=== PATIENT | male | born 1960 | race Caucasian/White ===

== ENCOUNTER 2024-01-12 13:46 | Inpatient (IN) | payer MEDICARE, BC, SELFPAY ==
[2024-01-12] VITALS (15 sets, daily range): BP systolic 122–200; BP diastolic 61–91; PULSE 73–90; RESP 14–27; TEMP 36.7–38.7; O2SAT 94–97
[2024-01-12 14:24] LABS: Lactate 1.7 mmol/L (0.6-1.4)
[2024-01-12] MEDS: Lidocaine 2% Jelly 11 ML SYR (14:25)
[2024-01-12 14:26] LABS: Abs Immature Grans 0.22 10^3/uL (0.0-0.06); Absolute Lymphocyte Count 0.57 10^3/uL (1.2-3.4); Absolute Monocyte Count 1.19 10^3/uL (0.1-0.8); Basophils % 0.2 %; HCT 42.8 % (40.0-50.0); Lymphocytes % 2.5 %; MCH 32.6 pg (27.0-33.0); MCV 93 fL (80-95); MPV 8.6 fL (8.0-11.0); Monocytes % 5.2 %; Neutrophils % 91.1 %; Platelet Count 236 10^3/uL (130-400); RDW 11.5 % (11.8-14.1); RDW-SD 39.3 fL; WBC 22.85 10^3/uL (4.4-10.8)
[2024-01-12 14:28] LABS: Absolute Basophil Count 0.05 10^3/uL (0.0-0.2); Absolute Neutrophil Count 20.82 10^3/uL (1.2-6.7)
[2024-01-12 14:34] LABS: Diff Comment Diff Reviewed; RBC Morphology Normal
[2024-01-12] MEDS: cefTRIAXone 2 GM/50 ML BAG IVPB (14:43)
[2024-01-12 14:45] LABS: ALT 35 U/L (16-63); AST 18 U/L (15-37); Alkaline Phosphatase 75 U/L (46-116); Anion Gap 9.8 mmol/L (3-11); BUN 13 mg/dL (7-18); Bilirubin, Total 2.59 mg/dL (0.2-1.0); CO2 26.2 mmol/L (21.0-32.0); CREATININE 1.1 mg/dL (0.70-1.30); Calcium 9.1 mg/dL (8.5-10.1); Chloride 101 mmol/L (98-107); Glucose 159 mg/dL (74-106); Potassium 4.1 mmol/L (3.5-5.1); Sodium 137 mmol/L (136-145); Total Protein 7.1 g/dL (6.4-8.2)
[2024-01-12 14:57] LABS: Bilirubin Negative (Negative); Blood Moderate (Negative); Clarity Sl Cloudy (Clear); Glucose Negative (Negative); Ketones Negative (Negative); Leukocyte Esterase Moderate (Negative); Nitrite Positive (Negative); Specific Gravity >= 1.030 (1.005-1.025); Urobilinogen 0.2 mg/dL (Up to 0.2); pH 5.5 (5-8)
[2024-01-12 15:01] LABS: Procalcitonin 0.7 ng/mL
[2024-01-12 15:04] LABS: Bacteria Moderate HPF (Negative); C & S Indicated? C&S Done As Ordered; Casts 0-2 Hyaline LPF (Negative); Crystals Negative HPF (Negative); Epithelial Cells Rare HPF (Negative); Mucus Negative (Negative); WBC >50 HPF (0-5)
[2024-01-12] MEDS: Lactated Ringers 1,000 ML 1000 ML IV (15:20)
--- NOTE | 2024-01-12 15:34 | ED.GENADUL_ITS ---
Discharge Plan Disposition Patient Disposition: Admit to [facility] Condition: Improving Discharge Details Chief Complaint: Urinary Clinical Impression: Sepsis, Urinary tract infection Primary Care Provider: Unknown,Unknown ED Provider: Mihir Menon Home Meds and New Rx's Prescriptions: No Action irbesartan [Avapro] 300 mg tablet 300 mg PO DAILY [facility] General Date/Time Provider Initiated Documentation: 01/12/24 13:51 . HPI Narrative: This is a pleasant 63-year-old male with a past medical history of h ypospadia, hypertension, previous hip replacement, who presents today for evaluation of fever chills urinary discomfort. He states that he has not urinated anything for the last 12 hours. He has had an obstruction once in the past which required Estevez catheter. He admits to burning with urination, fever at home. He is currently out camping with his here in [place] and resides in [place] at [facility]. He denies any pain in his hips or abdomen. He denies any vomiting or diarrhea. No runny nose or cough. No other complaints at this time. He has never had surgery for his hypospadia in the past. He does have an undescended right testicle. Related Data Home Medications ?Medication ?Instructions ?Recorded ?Confirmed irbesartan 300 mg tablet (Avapro) 300 mg PO DAILY 01/12/24 01/12/24 Allergies Allergy/AdvReac Type Severity Reaction Status Date / Time No Known Allergies Allergy Unverified 01/12/24 13:54 General Stated Complaint: Urinary ERIKA: 2 Review of Systems All systems reviewed & are unremarkable except as noted in HPI and below Exam Narrative Exam Narrative: 1.Const: Well-nourished, Well-developed, appearing stated age 2.Eyes: PERRL, no conjunctival injection, and symmetrical lids. 3.ENT: Atraumatic external nose and ears. Moist MM. Neck: Symmetric, trachea midline, No thyromegaly. 4.CVS: +S1/S2, No murmurs or gallops. Peripheral pulses 2+ and equal in all extremities. Brisk capillary refill in all extremities. 5.RESP: Unlabored respiratory effort. Clear to auscultation bilaterally. No wheezes rales or rhonchi 6.GI: Soft, Nontender/Nondistended, No hepatosplenomegaly. No guarding or rebound. Genital exam demonstrates hypospadia, no penile tenderness. No suprapubic tenderness. Left testicle is descended normally, right testicle is palpable near the groin area. No hip pain or tenderness with movement. 7.MSK: Normocephalic/Atraumatic, Extremities w/o deformity or ttp No cyanosis or clubbing, Normal movement of all extremities 8.Skin: Warm, Dry. No rashes or lesions. 9.Neuro: handkerchief sample clerk II-XII grossly intact. Sensation grossly intact, no focal neurologic deficits. 10.Psych: (AAO) x3. Appropriate mood and affect Course Vital Signs Vital signs: Vital Signs Temperature 37.7 C H 01/12/24 13:52 Pulse 90 01/12/24 13:52 Respiratory Rate 14 01/12/24 13:52 Blood Pressure 200/91 H 01/12/24 13:52 Pulse Oximetry 95 01/12/24 13:52 Temperature 37.7 C H 01/12/24 14:46 Temperature Source Oral 01/12/24 14:46 Pulse 90 01/12/24 14:46 Respiratory Rate 14 01/12/24 14:46 Respiratory Effort Normal 01/12/24 14:44 Blood Pressure 200/91 H 01/12/24 14:46 Blood Pressure Position Sitting 01/12/24 14:46 Pulse Oximetry 95 01/12/24 14:46 Oxygen Delivery Method Room Air 01/12/24 14:46 Oxygen Flow Rate 0 01/12/24 14:46 Pain Level 8 01/12/24 14:47 Lab/Test Results Lab/Test Results: 01/12/24 14:53 Urine - Cath Estevez Indwelling Urine Culture - Pending Laboratory Tests Range/Units 01/12/24 01/12/24 14:20 14:53 WBC (4.4-10.8) 10^3/uL 22.85 H RBC (4.36-5.78) 10^6/uL 4.60 Hgb (13.5-17.5) g/dL 15.0 Hct (40.0-50.0) % 42.8 MCV (80-95) fL 93 MCH (27.0-33.0) pg 32.6 MCHC (32.0-36.0) % 35.0 RDW (11.8-14.1) % 11.5 L Plt Count (130-400) 10^3/uL 236 MPV (8.0-11.0) fL 8.6 Immature Gran % % 1.0 Neutrophils % % 91.1 Lymphocytes % % 2.5 Monocytes % % 5.2 Eosinophils % % 0.0 Basophils % % 0.2 Nucleated RBC % (0.0-0.3) % 0.0 Absolute Neutrophils (1.2-6.7) 10^3/uL 20.82 H Absolute Lymphocytes (1.2-3.4) 10^3/uL 0.57 L Absolute Monocytes (0.1-0.8) 10^3/uL 1.19 H Absolute Eosinophils (0.0-0.7) 10^3/uL 0.00 Absolute Basophils (0.0-0.2) 10^3/uL 0.05 RBC Morphology Normal VBG Lactate (0.6-1.4) mmol/L 1.7 H Sodium (136-145) mmol/L 137 Potassium (3.5-5.1) mmol/L 4.1 Chloride (98-107) mmol/L 101 Carbon Dioxide (21.0-32.0) mmol/L 26.2 Anion Gap (3-11) mmol/L 9.8 BUN (7-18) mg/dL 13 Creatinine (0.70-1.30) mg/dL 1.1 Est GFR (CKD-EPI 2020) (mL/min/1.73m2) 74.50 Glucose (74-106) mg/dL 159 H Calcium (8.5-10.1) mg/dL 9.1 Total Bilirubin (0.2-1.0) mg/dL 2.59 H AST (15-37) U/L 18 ALT (16-63) U/L 35 Alkaline Phosphatase (46-116) U/L 75 Total Protein (6.4-8.2) g/dL 7.1 Albumin (3.4-5.0) g/dL 4.0 Procalcitonin ng/mL 0.7 Urine Color (Yellow) Yellow Urine Clarity (Clear) Sl Cloudy Urine pH (5-8) 5.5 Ur Specific [place] (1.005-1.025) >= 1.030 H Urine Protein (Neg-Trace) mg/dL 100 H Urine Ketones (Negative) mg/dL Negative Urine Blood (Negative) Moderate H Urine Nitrite (Negative) Positive H Urine Bilirubin (Negative) Negative Urine Urobilinogen (Up to 0.2) mg/dL 0.2 Ur Leukocyte Esterase (Negative) Moderate H Urine RBC (0-2) HPF 10-20 H Urine WBC (0-5) HPF >50 H Ur Epithelial Cells (Negative) HPF Rare Urine Crystals (Negative) HPF Negative Urine Bacteria (Negative) HPF Moderate Urine Casts (Negative) LPF 0-2 Hyaline Urine Mucus (Negative) Negative Ur Culture Indicated? C&S Done As Ordered Urine Glucose (Negative) mg/dL Negative Medical Decision Making This is a pleasant 63-year-old male with a past medical history of hypospadia, hypertension, previous hip replacement, who presents today for evaluation of fever chills urinary discomfort. He states that he has not urinated anything for the last 12 hours. He has had an obstruction once in the past which required Estevez catheter. He admits to burning with urination, fever at home. He is currently out camping with his here in [place] and resides in [place] at [facility]. He denies any pain in his hips or abdomen. He denies any vomiting or diarrhea. No runny nose or cough. No other complaints at this time. He has never had surgery for his hypospadia in the past. He does have an undescended right testicle. Exam demonstrates a male, skin palpably warm, borderline fever, differential includes obstruction versus UTI. No hip pain or tenderness to suggest joint seeding. No abdominal pain or tenderness to suggest kidney stone or obstruction. Will get labs, treat with ceftriaxone for suspected UTI, place a Estevez catheter to help eliminate obstruction, monitor closely and reassess. 3:43 PM Patient urinalysis shows notable UTI, urine looks borderline like pus. He has only had about 50 cc out, and there is no evidence of obstruction on bedside ultrasound. Estevez catheter was placed and he tolerated this well. Laboratory workup shows white count of 22, notable left shift, lactate of 1.7, and an elevated procalcitonin of 0.7. Patient has already been given 2 g of ceftriaxone. We will add blood cultures. Urine has already been cultured. Temperature is now 101, we will add a gram of Tylenol. With the patient's lactate, elevated white count, notable urinary tract infection, I am concerned for urosepsis, I do feel that admission is indicated. I did contact the hospitalist Dr Esteban and discussed the case with him. He agrees with the assessment plan. I have extensively reviewed the treatment plan with the patient. I have addressed all patient concerns at this time. I have also discussed the plan with the admitting physician and they agree with the current assessment and plan and have agreed to assume responsibility for the patient. All parties demonstrate verbal understanding and agreement with our assessment and plan at this time. The documentation in this chart was dictated using [employer] dictation software. Please excuse any dictation errors. Quality:SDOH Health Related Social Needs: No Data to Display PFS All Active Problems (Updated 01/12/24 @ 15:46 by Mihir Menon DO) Urinary tract infection (Acute) Sepsis (Acute) Social History Smoking/Tobacco Use Status: Former Tobacco Use Smoking risk assessment performed?: Yes Drug use: Current Sobriety Substance use type: does not use Housing: apartment [employer] Have you Been Recently Intoxicated or Drunk Within the Last 30 days?: No Have you Ever Experienced Previous Episodes of Alcohol Withdrawal?: No Have you ever Experienced Withdrawal Seizures?: No Have you ever Experienced Delirium Tremens(DT)s?: No Have you ever undergone Alcohol Rehabilitation Treatment (i.e, inpt ot outpatient treatment programs)?: No Have you ever Experienced Blackouts?: No Have you ever Combined Alcohol with other Downers within the last 90 days?: No Have you ever Combined Alcohol with any other Substance of Abuse during the last 90 days?: No Positive Blood Alcohol level on Presentation? [PCS.BAL]: No Evidence of Increased Autonomic Activity (i.e. HR>120, tremor, sweating, agitation, nausea)?: No Result: 0
--- NOTE | 2024-01-12 15:42 | HPE_ITS ---
Date of service: 01/12/24 Time of Service: 15:43 Assessment and Plan Assessment and plan (1) Sepsis: Status: Acute Assessment and plan: -patient meets criteria for sepsis with temp of 101oF, WBC 22.8, RR 22, and UTI as source of infection -CTX was given prior to drawing blood cultures as it was initially thought patient would be appropriete for discharge from ED -blood cultures have since been drawn, will f/u along with urine cultures -will continue CTX (2) Urinary tract infection: Status: Acute Assessment and plan: -as noted above (3) HTN (hypertension): Status: Chronic Assessment and plan: -continue home irbesartan History of Present Illness History of Present Illness Chief Complaint: urinary obstruction Narrative: 63yo male with PMH hypospadia and HTN who presents to the ED with fever, chills and urinary discomfort. Patient states that he has not urinated for the past 12hrs and that he has had history of a previous urinary obstruction requiring rodriguez cath placement. Now he says that he has been having buring with urination and a fever at home of 101oF. He and his are visting on a camping trip from [facility]. He denies any lightheadedness, dizziness, abdominal pain, nausea or vomiting. In the ED the patient was noted as having a HR of 90, 171/62, RR of 22, and saturating well on room air. He exam was benign except for noted hyposapdia. WBCs were 22.8, and UA was highly suggestive of UTI with UA draining about 50cc of urine that was very pus like in appearance. The patient was given 2g of CTX in the ED, and ED physician paged hospitalist for admission of a patient with sepsis secondary to UTI. Review of Systems All systems reviewed & are unremarkable except as noted in HPI and below PFSH All Active Problems (Updated 01/12/24 @ 16:26 by DONA CORDON) HTN (hypertension) (Chronic) Urinary tract infection (Acute) Sepsis (Acute) Social History Smoking/Tobacco Use Status: Former Tobacco Use Smoking risk assessment performed?: Yes Drug use: Current Sobriety Substance use type: does not use Housing: apartment Meds Allergies and Home Medications Allergies Allergy/AdvReac Type Severity Reaction Status Date / Time No Known Allergies Allergy Unverified 01/12/24 13:54 Home Medications ?Medication ?Instructions ?Recorded ?Confirmed ?Type irbesartan 300 mg tablet (Avapro) 300 mg PO DAILY 01/12/24 01/12/24 History Exam Narrative Exam Narrative: well appearing gentleman laying in bed in no acute distress, AOx4, heart RRR, lungs CTAB, abdomen soft, non-tender, non-distended Results Labs 01/12/24 14:20 01/12/24 14:20 Labs: Laboratory Results - last 24 hr 01/12/24 01/12/24 14:20 14:53 WBC 22.85 H RBC 4.60 Hgb 15.0 Hct 42.8 MCV 93 MCH 32.6 MCHC 35.0 RDW 11.5 L Plt Count 236 MPV 8.6 Immature Gran % 1.0 Neutrophils % 91.1 Lymphocytes % 2.5 Monocytes % 5.2 Eosinophils % 0.0 Basophils % 0.2 Nucleated RBC % 0.0 Absolute Neutrophils 20.82 H Absolute Lymphocytes 0.57 L Absolute Monocytes 1.19 H Absolute Eosinophils 0.00 Absolute Basophils 0.05 RBC Morphology Normal VBG Lactate 1.7 H Sodium 137 Potassium 4.1 Chloride 101 Carbon Dioxide 26.2 Anion Gap 9.8 BUN 13 Creatinine 1.1 Est GFR (CKD-EPI 2020) 74.50 Glucose 159 H Calcium 9.1 Total Bilirubin 2.59 H AST 18 ALT 35 Alkaline Phosphatase 75 Total Protein 7.1 Albumin 4.0 Procalcitonin 0.7 Urine Color Yellow Urine Clarity Sl Cloudy Urine pH 5.5 Ur Specific [place] >= 1.030 H Urine Protein 100 H Urine Ketones Negative Urine Blood Moderate H Urine Nitrite Positive H Urine Bilirubin Negative Urine Urobilinogen 0.2 Ur Leukocyte Esterase Moderate H Urine RBC 10-20 H Urine WBC >50 H Ur Epithelial Cells Rare Urine Crystals Negative Urine Bacteria Moderate Urine Casts 0-2 Hyaline Urine Mucus Negative Ur Culture Indicated? C&S Done As Ordered Urine Glucose Negative Last Vital Signs Temp 99.8 F H 01/12/24 14:46 Pulse 90 01/12/24 14:46 Resp 14 01/12/24 14:46 BP 200/91 H 01/12/24 14:46 Pulse Ox 95 01/12/24 14:46 PAWSS Have you Been Recently Intoxicated or Drunk Within the Last 30 days?: No Have you Ever Experienced Previous Episodes of Alcohol Withdrawal?: No Have you ever Experienced Withdrawal Seizures?: No Have you ever Experienced Delirium Tremens(DT)s?: No Have you ever undergone Alcohol Rehabilitation Treatment (i.e, inpt ot outpatient treatment programs)?: No Have you ever Experienced Blackouts?: No Have you ever Combined Alcohol with other Downers within the last 90 days?: No Have you ever Combined Alcohol with any other Substance of Abuse during the last 90 days?: No Positive Blood Alcohol level on Presentation? [PCS.BAL]: No Evidence of Increased Autonomic Activity (i.e. HR>120, tremor, sweating, agitation, nausea)?: No Result: 0 Time Spent Time spent with Patient: >75 minutes Time was spent: preparing to see the patient(eg.review tests), obtaining and/or reviewing separately otained hiistory, ordering medications,tests, procedures, referring, communicating with other health patient care associate, indepentently interpreting results, counseling the patient and care coordination
[2024-01-12] MEDS: ACETAMINOPHEN 1,000 MG/100 ML BTL 400 MG (15:50)
[2024-01-12] MEDS: Irbesartan 75 MG TAB 150 MG PO (16:46)
--- NOTE | 2024-01-12 16:50 | W.PC.ACHO ---
Registration Status: Primary Language: Preferred Language: ED Information & Data Chief Complaint Urinary 01/12/24 15:37 Triage Note patient has been unable to 01/12/24 13:52 void for the past 12 hours. has felt feverish today. had a complete hip replacement in june and needed to be cathed. Has daily BM and had normal one this morning. patient is nauseous and had dry heaves. Most Recent Vital Signs Temperature 37.5 C 01/12/24 16:27 Temperature Source Tympanic 01/12/24 16:27 Pulse 85 01/12/24 16:27 Pulse 86 01/12/24 16:00 Respiratory Rate 18 01/12/24 16:27 Respiratory Effort Normal 01/12/24 14:44 Blood Pressure 168/75 H 01/12/24 16:27 Blood Pressure Mean 98 01/12/24 15:46 Blood Pressure Position Supine 01/12/24 15:41 Pulse Oximetry 97 01/12/24 16:27 Oxygen Delivery Method Room Air 01/12/24 16:27 Oxygen Flow Rate 0 01/12/24 16:27 Pain Level 0 01/12/24 16:27 Comment RN notified of. 01/12/24 16:27 Allergies No Known Allergies Allergy (Unverified 01/12/24 13:54) Precautions Isolation Standard precaution 01/12/24 14:44 IV IV Catheter Type [Right Saline Lock Antecubital] IV Catheter Gauge [Right 20 Antecubital] Diet Orders Category Date Time Status Regular/Normal [DIET] Nutrition 01/12/24 Dinner Active Diagnostics 01/12/24 01/12/24 Range/Units 14:53 14:20 WBC 22.85 H (4.4-10.8) 10^3/uL RBC 4.60 (4.36-5.78) 10^6/uL Hgb 15.0 (13.5-17.5) g/dL Hct 42.8 (40.0-50.0) % MCV 93 (80-95) fL MCH 32.6 (27.0-33.0) pg MCHC 35.0 (32.0-36.0) % RDW 11.5 L (11.8-14.1) % Plt Count 236 (130-400) 10^3/uL MPV 8.6 (8.0-11.0) fL Immature Gran % 1.0 % Neutrophils % 91.1 % Lymphocytes % 2.5 % Monocytes % 5.2 % Eosinophils % 0.0 % Basophils % 0.2 % Nucleated RBC % 0.0 (0.0-0.3) % Absolute Neutrophils 20.82 H (1.2-6.7) 10^3/uL Absolute Lymphocytes 0.57 L (1.2-3.4) 10^3/uL Absolute Monocytes 1.19 H (0.1-0.8) 10^3/uL Absolute Eosinophils 0.00 (0.0-0.7) 10^3/uL Absolute Basophils 0.05 (0.0-0.2) 10^3/uL RBC Morphology Normal VBG Lactate 1.7 H (0.6-1.4) mmol/L Sodium 137 (136-145) mmol/L Potassium 4.1 (3.5-5.1) mmol/L Chloride 101 (98-107) mmol/L Carbon Dioxide 26.2 (21.0-32.0) mmol/L Anion Gap 9.8 (3-11) mmol/L BUN 13 (7-18) mg/dL Creatinine 1.1 (0.70-1.30) mg/dL Est GFR (CKD-EPI 2020) 74.50 (mL/min/1.73m2) Glucose 159 H (74-106) mg/dL Calcium 9.1 (8.5-10.1) mg/dL Total Bilirubin 2.59 H (0.2-1.0) mg/dL AST 18 (15-37) U/L ALT 35 (16-63) U/L Alkaline Phosphatase 75 (46-116) U/L Total Protein 7.1 (6.4-8.2) g/dL Albumin 4.0 (3.4-5.0) g/dL Procalcitonin 0.7 ng/mL Urine Color Yellow (Yellow) Urine Clarity Sl Cloudy (Clear) Urine pH 5.5 (5-8) Ur Specific [place] >= 1.030 H (1.005-1.025) Urine Protein 100 H (Neg-Trace) mg/dL Urine Ketones Negative (Negative) mg/dL Urine Blood Moderate H (Negative) Urine Nitrite Positive H (Negative) Urine Bilirubin Negative (Negative) Urine Urobilinogen 0.2 (Up to 0.2) mg/dL Ur Leukocyte Esterase Moderate H (Negative) Urine RBC 10-20 H (0-2) HPF Urine WBC >50 H (0-5) HPF Ur Epithelial Cells Rare (Negative) HPF Urine Crystals Negative (Negative) HPF Urine Bacteria Moderate (Negative) HPF Urine Casts 0-2 Hyaline (Negative) LPF Urine Mucus Negative (Negative) Ur Culture Indicated? C&S Done As Ordered Urine Glucose Negative (Negative) mg/dL 01/12/24 16:06 Blood Culture - Pending Blood 01/12/24 15:59 Blood Culture - Pending Blood 01/12/24 14:53 Urine Culture - Pending Urine - Cath Estevez Indwelling Intake and Output - 24 Hour Total 01/12/24 13:46 thru 01/12/24 15:14 Intake Total 60 Output Total 15 Balance 45 Weight 90.718 kg Intake: IV 60 Output: Urine 15 Other: Urine Color Straw Urine Appearance Cloudy Urinary Catheter Urinary Catheter Date of 01/12/24 Insertion [Uretheral (Estevez)] Time of insertion [Uretheral ( 14:30 Estevez)] Falls Risk Assessment Contributing Factors No Factors 01/12/24 14:47 Fall Total Score 0 01/12/24 14:47 Level of Risk Standard/Low Risk 01/12/24 14:47 Problems (Last Reviewed 01/12/24 @ 15:36 by Mihir Menon DO) HTN (hypertension) (Chronic) Urinary tract infection (Acute) Sepsis (Acute) v v v v v v v v v Sending and/or Receiving Nurses: Please use comment section below to note any information pertinent to the patient hand-off not included above. Information / Comments: Report received from: [facility]
[2024-01-12] MEDS: Enoxaparin 40 MG/0.4 ML SYR SC (17:59)
[2024-01-12] MEDS: Acetaminophen 325 MG TAB PO (19:51)
[2024-01-12] MEDS: Normal Saline Flush 10 ML SYR IVP (19:52)
[2024-01-13 03:09] VITALS: BP 138/77; PULSE 74; RESP 18; TEMP 37.4; O2SAT 98
[2024-01-13 07:26] VITALS: BP 137/73; PULSE 70; RESP 20; TEMP 37; O2SAT 96
[2024-01-13] MEDS: Irbesartan 75 MG TAB 300 MG PO (08:46)
[2024-01-13] MEDS: Normal Saline Flush 10 ML SYR IVP (08:46)
[2024-01-13 09:08] LABS: Anion Gap 8.1 mmol/L (3-11); BUN 9 mg/dL (7-18); CO2 26.9 mmol/L (21.0-32.0); CREATININE 1.1 mg/dL (0.70-1.30); Calcium 8.8 mg/dL (8.5-10.1); Chloride 102 mmol/L (98-107); Glucose 150 mg/dL (74-106); Magnesium 1.8 mg/dL (1.8-2.4); Potassium 3.6 mmol/L (3.5-5.1); Sodium 137 mmol/L (136-145)
[2024-01-13 09:31] LABS: HCT 37.2 % (40.0-50.0); HGB 13.5 g/dL (13.5-17.5); MCH 33.6 pg (27.0-33.0); MCHC 36.3 % (32.0-36.0); MCV 93 fL (80-95); MPV 9.1 fL (8.0-11.0); Platelet Count 226 10^3/uL (130-400); RBC 4.02 10^6/uL (4.36-5.78); RDW 11.9 % (11.8-14.1); RDW-SD 40.3 fL; WBC 21.96 10^3/uL (4.4-10.8)
--- NOTE | 2024-01-13 09:46 | INITIAL_ITS ---
Date of service: 01/13/24 Time of Service: 09:46 Care Management Initial Assmt Initial Assessment Reason for Hospitalization: Sepsis, UTI Functional Status/Living Situation Patient Presentation: William was sitting in a chair watching TV when CM met with him. He lives in [place] and came to the area for a camping trip. He is planning on traveling back home son after discharge. Town of Residence: [place], [place] Resides with: Spouse (Carmel Sexton) Significant Other/Family: Out of area Employment Status: Retired Instrumental Activities of Daily Living (ADLs): Independent Medications Medication Management: No Issues/Barriers identified Physical Functioning/Mobility Assistive Device: None Advance Directives Advance Directives: Do you have an Advance Directive: N 01/12/24 16:34 AD On File at [facility]: N 01/12/24 16:34 Date Asked 01/12/24 01/12/24 16:34 AD Date Reviewed COLST On File at [facility] COLST Date Scanned Code Status Resuscitation Status Full Code Portal Pt does not currently have a portal and education provided: Yes Insurance Coverage/Financial Issues Insurance: BC/BS out of State Medicare Financial Issues: None identified Care Team Visit Care Team Role Provider Type Unknown Unknown Primary Care Provider STAFF PHYSICIAN Mihir Menon DO Emergency Provider [facility] STAFF PHYSICIAN Ata Esteban MD Admit Provider [facility] STAFF PHYSICIAN Attending Provider Discharge Anticipated Barriers to Discharge: None Identified Patient/Family Education Needs: Review discharge instructions, discuss Ask Me Three Transportation: Private vehicle Plan: Anticipate William will discharge home on a course of PO ABX via private vehicle with family when medically cleared by Hospitalist. Pt will follow up with community providers local to him, and his discharge plan of care as instructed. No new services are anticipated at this time. CM will follow. PFSH All Active Problems (Updated 01/13/24 @ 11:39 by Ata Esteban MD) HTN (hypertension) (Chronic) Urinary tract infection (Acute) Sepsis (Acute) Social History Smoking/Tobacco Use Status: Former Tobacco Use Smoking risk assessment performed?: Yes Drug use: Current Sobriety Substance use type: does not use Housing: house [facility](Care Management) Screening Will the Patient Participate in the Screening?: Yes Do you worry about having a steady place to live?: no Problems where you live: no known problems In the past 12 months, have you had to go without electric, gas, oil or water in your home?: no Have you or anyone in your house had to go without enough food to eat?: no Has lack of transportation kept you from medical appointments or from doing things needed for daily living?: no Has anyone in your support network made you feel unsafe for any reason?: no
--- NOTE | 2024-01-13 11:39 | W.PM.DS.N ---
Date of service: 01/13/24 Time of Service: 11:40 DS: Diagnosis Discharge Diagnosis (1) Sepsis: Status: Acute (2) Urinary tract infection: Status: Acute (3) HTN (hypertension): Status: Chronic Discharge Plan Disposition Patient Disposition: Home Condition: Good Discharge Details Reason For Visit: Sepsis, UTI Admit Date/Time: 01/12/24 15:41 Admit Provider: Ata Esteban Attending Provider: Ata Esteban Primary Care Provider: Unknown,Unknown Hospital Course Hospital Course: Patient initially presented with signs and symptoms consistent with a UTI that met sepsis criteria with fever at home, lymph node cell count and tachypnea. Sepsis pathology rapidly resolved. With patient being on ceftriaxone. His white count marginally improved but patient has significant improvement of his symptoms and was able to urinate after Estevez catheter was removed. Given patient's overall significant improvement it was determined that he was stable for discharge home and will have an additional 6 days of p.o. cefpodoxime to complete antibiotic course Home Meds and New Rx's Prescriptions: New cefpodoxime 200 mg tablet 200 mg PO BID Qty: 12 0RF Rx Instructions: must administer with a meal/food Continued irbesartan [Avapro] 300 mg tablet 300 mg PO DAILY Discharge Instructions Activity:: Activity as Tolerated Equipment/Supplies:: No Equipment Needed Diet:: As Tolerated Discharge Orders Discharge Orders: Discharge Order (Routine); Ordered 01/13/24 Ordered By: Ata Esteban DS: Summary Time Spent with Patient providing and/or coordinating discharge services: Greater than 30 minutes Status at Discharge Functional status at discharge: independent ambulation Overall status at discharge: patient is back to baseline Mental Status: mental status grossly normal Speech and Movement: speech and movement normal Mood: congruent mood Affect: normal affect Quality:SDOH Health Related Social Needs: No Data to Display Exam Narrative Exam Narrative: well appearing gentleman laying in bed in no acute distress, AOx4, heart RRR, lungs CTAB, abdomen soft, non-tender, non-distended Psych Mental Status: mental status grossly normal Speech and Movement: speech and movement normal Mood: congruent mood Affect: normal affect DS: Data Vitals/I&O Vitals and I&O: Vital Signs Temperature 98.6 F 01/13/24 07:26 Temperature Source Temporal Artery Scan 01/13/24 07:26 Pulse 70 01/13/24 07:26 Pulse Rhythm Regular 01/13/24 08:30 Pulse 86 01/12/24 16:00 Respiratory Rate 20 01/13/24 07:26 Respiratory Effort Normal 01/13/24 08:30 Respiratory Depth Normal 01/13/24 08:30 Respiratory Pattern Normal 01/13/24 08:30 Blood Pressure 137/73 01/13/24 07:26 Blood Pressure Mean 98 01/12/24 15:46 Blood Pressure Position Supine 01/12/24 15:41 Pulse Oximetry 96 01/13/24 07:26 Oxygen Delivery Method Room Air 01/13/24 07:26 Oxygen Flow Rate 0 01/13/24 07:26 Pain Level 0 01/12/24 16:27 Comment RN notified of. 01/12/24 16:27 Intake & Output 01/12/24 01/13/24 01/13/24 17:59 05:59 17:59 Intake Total 1070 / 1070 1480 / 2550 Output Total 15 / 15 1800 / 1815 600 / 600 Balance 1055 / 1055 -320 / 735 -600 / -600 Weight 200 lb Intake: IV 1070 / 1070 Oral 1480 / 1480 Output: Urine 15 / 15 1800 / 1815 600 / 600 Other: Urine Color Dark Jocelyn Yellow Light Jocelyn Urine Appearance Clear Clear Clear Urine Odor None Stool Size Moderate Stool Characteristics Soft Liquid Brown Voiding Methods Indwelling Catheter Data Completed and Pending Labs on day of discharge: Labs from last 24 hours 01/13/24 01/12/24 01/12/24 06:15 14:53 14:20 WBC 21.96 H 22.85 H RBC 4.02 L 4.60 Hgb 13.5 15.0 Hct 37.2 L 42.8 MCV 93 93 MCH 33.6 H 32.6 MCHC 36.3 H 35.0 RDW 11.9 11.5 L Plt Count 226 236 MPV 9.1 8.6 Immature Gran % 1.0 Neutrophils % 91.1 Lymphocytes % 2.5 Monocytes % 5.2 Eosinophils % 0.0 Basophils % 0.2 Nucleated RBC % 0.0 Absolute Neutrophils 20.82 H Absolute Lymphocytes 0.57 L Absolute Monocytes 1.19 H Absolute Eosinophils 0.00 Absolute Basophils 0.05 RBC Morphology Normal VBG Lactate 1.7 H Sodium 137 137 Potassium 3.6 4.1 Chloride 102 101 Carbon Dioxide 26.9 26.2 Anion Gap 8.1 9.8 BUN 9 13 Creatinine 1.1 1.1 Est GFR (CKD-EPI 2020) 74.50 74.50 Glucose 150 H 159 H Calcium 8.8 9.1 Magnesium 1.8 Total Bilirubin 2.59 H AST 18 ALT 35 Alkaline Phosphatase 75 Total Protein 7.1 Albumin 4.0 Procalcitonin 0.7 Urine Color Yellow Urine Clarity Sl Cloudy Urine pH 5.5 Ur Specific [place] >= 1.030 H Urine Protein 100 H Urine Ketones Negative Urine Blood Moderate H Urine Nitrite Positive H Urine Bilirubin Negative Urine Urobilinogen 0.2 Ur Leukocyte Esterase Moderate H Urine RBC 10-20 H Urine WBC >50 H Ur Epithelial Cells Rare Urine Crystals Negative Urine Bacteria Moderate Urine Casts 0-2 Hyaline Urine Mucus Negative Ur Culture Indicated? C&S Done As Ordered Urine Glucose Negative 01/12/24 16:06 Blood Blood Culture - Pending 01/12/24 15:59 Blood Blood Culture - Pending 01/12/24 14:53 Urine - Cath Estevez Indwelling Urine Culture - Pending Preliminary micro results at discharge 01/12/24 16:06 Blood Culture - Pending Blood 01/12/24 15:59 Blood Culture - Pending Blood 01/12/24 14:53 Urine Culture - Pending Urine - Cath Estevez Indwelling PFSH All Active Problems (Updated 01/13/24 @ 11:39 by Ata Esteban MD) HTN (hypertension) (Chronic) Urinary tract infection (Acute) Sepsis (Acute) Social History Smoking/Tobacco Use Status: Former Tobacco Use Smoking risk assessment performed?: Yes Drug use: Current Sobriety Substance use type: does not use Housing: house Time Spent with Patient Time Spent with Patient: <45 minutes Time was spent: preparing to see the patient(eg.review tests), obtaining and/or reviewing separately otained hiistory, ordering medications,tests, procedures, referring, communicating with other health intensive care nurse, indepentently interpreting results, counseling the patient and care coordination
--- NOTE | 2024-01-13 15:37 | PDOC.CMDIS ---
Date of service: 01/13/24 Time of Service: 15:37 LACE Index Scoring Tool Questions: Length of Stay (in days): 1 Was the patient admitted via the E.D.?: Yes E.D. Visits: 1 Answers: Total Score: 5 Risk of Readmission: Low Risk Care Management Discharge Plan Reason for Hospitalization: Sepsis, UTI Discharge Plan: William is discharged home on a course of PO Cefpodoxime and a plan to follow up with his established community providers, as his plan is to travel back home. Patient/Family Education Needs: Review discharge instructions, limitations, medications and plan to follow up with community providers. Discuss ask me three and goals of self care. SDOH Health Related Social Needs: No Data to Display
== END 2024-01-13 12:25 | disposition home or self-care (01) | DRG 872 ==
LOC: ER 15:46 → MS 16:26
PROVIDERS: Admitting Provider Family Medicine; Emergency Provider Student in an Organized Health Care Education/Training Program; Visit Provider Family Medicine
DX: A41.9 Sepsis, unspecified organism (principal); N39.0 Urinary tract infection, site not specified; I10 Essential (primary) hypertension; Q54.9 Hypospadias, unspecified; Z87.891 Personal history of nicotine dependence
CPT/HCPCS: 00123; 36415; 51702; 80048; 80053; 84145; 85027; 87040; 87077; 96361; 96365; 99285; J1650; 81003; 81015; 83605; 83735; 85025; 87086; 87186; 99223; 99238; J0131; J0696